=== PATIENT | male | born 2000 | race Caucasian/White ===

== ENCOUNTER 2020-11-25 15:49 | Emergency (ER) | payer OTHER ==
[~2020-11-25] VITALS: Ht 172.7 cm; Wt 81.6 kg
[2020-11-25 15:49] VITALS: BP_SYST 148
[2020-11-25] MEDS ORDERED: LIDOCAINE 2%, 20 ML MDV INJ ONE (16:45)
[2020-11-25] MEDS ORDERED: TETANUS IMMUNE GLOBULIN/PF 250 UNITS/SYR (HYPERTET) I.M. ONE (16:45)
[2020-11-25] MEDS ORDERED: cefTRIAXone 1 GM in LIDOCAINE 1%, 20 ML MDV 2.1 ML IM ONE (17:00)
[2020-11-25] MEDS ORDERED: LIDOCAINE 2%, 20 ML MDV ONE (17:10)
[2020-11-25] MEDS ORDERED: DIPH-TET-PERTUS Vaccine 0.5 ML VIAL (ADACEL) I.M. ONE (18:15)
[2020-11-25 19:18] VITALS: BP_SYST 132
== END 2020-11-25 19:18 | disposition home or self-care (01) ==
LOC: SED 15:49
DX: S61.211A Laceration without foreign body of left index finger without damage to nail, initial encounter (principal); W26.8XXA Contact with other sharp object(s), not elsewhere classified, initial encounter; Y93.89 Activity, other specified; Y92.89 Other specified places as the place of occurrence of the external cause; Y99.8 Other external cause status
CPT/HCPCS: 12004; 73140; 90471; 90715; 96372; 99284; J0696; J2001 ×2